=== PATIENT | male | born 1960 ===

== ENCOUNTER 2016-04-29 11:12 | Emergency (ER) | payer SELFPAY ==
[~2016-04-29] VITALS: Ht 175.3 cm; Wt 75.0 kg
[2016-04-29 11:17] VITALS: Ht 175.3 cm; Wt 75.0 kg
[2016-04-29] MEDS ORDERED: morphine 4 MG/ML VIAL IV STA (11:22)
--- NOTE | 2016-04-29 13:17 | RADRPT ---
PROCEDURE: XR Elbow. CLINICAL INDICATION: Pain TECHNIQUE: AP and lateral views of the right elbow performed. COMPARISON: None. FINDINGS: There is complete posterior dislocation of the right elbow joint involving both the radius and ulna with more prominent involvement of the ulna. There is an associated comminuted impaction type fract ure of the radius head anteriorly with displacement of the fracture fragments. In addition there is an distraction type fracture and avulsion of the olecranon process with distraction measuring 2.1 c m with comminution and small fragments are seen posteriorly. There is pronounced surrounding soft t issue swelling. IMPRESSION: There is a posterior dislocation of the right elbow of both the radius and, and there is associated distraction type fracture of the olecranon and impaction type fracture of the anterior radial head w ith comminution and adjacent fragments. A call report was made to Gallito Najera at 04/29/2016 1:16:40 PM RPTAT: AA .Andree Norwood MD, Date Time Electronically viewed and signed by .Andree Norwood MD, MD on 04/29/2016 13:16 .Carmen/
[2016-04-29] MEDS ORDERED: PROPOFOL 200 MG INJ IV ONE (14:00)
[2016-04-29] MEDS ORDERED: SOD CHLORIDE 0.9% 1,000 ML IV STA (14:00)
[2016-04-29 14:15] VITALS: TEMP 98.1
[2016-04-29] MEDS ORDERED: SIMV10TA76 PO (14:54)
[2016-04-29 15:15] VITALS: BP 119/87; PULSE 72; RESP 20
--- NOTE | 2016-04-29 15:34 | ERD ---
ER Documentation Chief Complaint Date/Time DATE: 04/29/16 TIME: 15:30 Chief Complaint RT ELBOW PAIN/INJURY AFTER TRIP AND FALL HPI This is a 55-year-old male presents to the emergency room for evaluation of elbow pain. The patient localizes pain to the right elbow and states that he did fall at his home in the backyard. He denies any head injury or loss of consciousness. He does state that his elbow is misinformed and he feels like he dislocated it. The patient denies being on any blood thinners at this time. ROS All systems reviewed and are negative except as per history of present illness. Medications Home Meds Reported Medications Simvastatin* (Zocor*) 10 Mg Tablet, 10 MG PO QHS, #30 TAB 04/29/16 Allergies Allergies: Coded Allergies: No Known Allergy (Unverified , 04/29/16) PMhx/Soc Medical and Surgical Hx: pt denies Medical Hx, pt denies Surgical Hx Hx Alcohol Use: No Hx Substance Use: No Hx Tobacco Use: No Smoking Status: Never smoker Physical Exam Vitals Vital Signs Date Time Temp Pulse Resp B/P Pulse Ox O2 Delivery O2 Flow Rate FiO2 04/29/16 14:30 60 20 104/78 100 Room Air 04/29/16 14:20 63 21 127/84 100 Non Rebreather 15.0 04/29/16 14:15 98.1 63 15 134/84 100 Non Rebreather 15.0 04/29/16 14:10 98.2 60 20 143/91 100 Non Rebreather 04/29/16 14:09 15.0 04/29/16 14:05 71 22 122/82 100 15.0 04/29/16 14:00 98.2 65 21 113/79 99 Non Rebreather 15.0 04/29/16 13:40 98.3 62 23 106/77 100 04/29/16 11:17 98.2 60 20 140/80 99 Physical Exam INITIAL VITAL SIGNS: Reviewed by me GENERAL: The patient is well developed and appropriate for usual state of health in no apparent distress HEENT: Pupils equal, round, and reactive to light. EOMI. There is no scleral icterus. NECK: C-spine is soft and supple, there is no meningismus. There is no cervical lymphadenopathy. LUNGS: Clear to auscultation bilaterally. There are no rales, wheezes or rhonchi. HEART: Regular rate and rhythm, no murmurs, clicks, rubs or gallops. ABDOMEN: Soft, non-tender, non-distended. There are bowel sounds in all four quadrants. No rebound or guarding. EXTREMITIES: Soft tissue swelling noted over the posterior aspect of the right elbow, visible deformity in the posterior location. Palpable and equal radial and ulnar pulses. NEUROLOGICAL: The patient moves all four extremities with 5/5 strength. Cranial nerves II - XII are intact. Normal gait. Alert and oriented SKIN: There is no apparent rash or petechiae. HEME/LYMPHATIC: There is no evidence of excessive bruising or lymphedema. PSYCHIATRIC: The patient does not appear anxious or depressed. Results 24 hrs Current Medications Medications (Trade) Dose Ordered Sig/Kacy Route PRN Reason Start Time Stop Time Status Last Admin Dose Admin Morphine Sulfate (morphine) 4 mg ONCE STAT IV 04/29/16 11:22 04/29/16 11:23 DC 04/29/16 11:30 Propofol 100 mg 100 mg ONCE ONCE IV 04/29/16 14:00 04/29/16 14:01 DC Sodium Chloride (NS) 1,000 ml @ 1,000 mls/hr Q1H STAT IV 04/29/16 14:00 04/29/16 14:59 DC 04/29/16 14:03 Procedures/MDM X-ray Elbow 3V Interpreted by me: There is a posterior dislocation of the right elbow of both the radius and, and there is associated distraction type fracture of the olecranon and impaction type fracture of the anterior radial head with comminution and adjacent fragments. X-ray Elbow 3V Interpreted by me: #2 postreduction Fat Pads: Slight posterior fat pad Bones: Persistent fracture of the olecranon process, and anterior radial head Joints: Reduced dislocation Foreign body: [None] This 55-year-old male presents to the ER for evaluation of right elbow pain. This patient was found to have a right-sided olecranon process fracture, and radial head fracture with posterior dislocation. He is neurovascularly intact however. I was able to reduce the dislocation segment. I have contacted her on -call orthopedic surgeon, Dr. Fletcher and I have reviewed the images with him. He states the patient can be placed in a posterior splint and can follow-up as an outpatient. The patient was placed in a splint. Please see split no. The patient is neurovascularly intact before and after splint placement. He will be referred out for orthopedic follow-up, Hao Temple for breakthrough pain. Reduction by me: Anesthesia: Propofol 100 mg Location: Right elbow Technique: Gentle traction and manipulation Results: [facility] of normal anatomic positioning Neurovascularly intact post procedure. [Splint Assessment: Neurovascularly intact post splint placement with good fit.] Procedural Sedation: Pre-assessment performed. See preceding complete history and physical for details. Time out performed. See sedation documentation for details. Medication(s): Propofol 100 mg Complications: No hypoxic or apneic events Recovered without incident. Greater than 15 minutes of face to face time included in sedation and recovery. A right posterior long arm splint was applied by the tech under my direct supervision. After splint application, the patient was appreciated to have a normal distal neurovascular examination. Departure Diagnosis: Primary Impression: Fracture dislocation of elbow joint Additional Impressions: Closed fracture dislocation of elbow Olecranon fracture Condition: Fair YOSSI HERNANDEZ DO Apr 29, 2016 15:34
[2016-04-29] MEDS ORDERED: HYDR-906 PO (15:35)
[2016-04-29] MEDS ORDERED: IBUP800T25 PO (15:35)
--- NOTE | 2016-04-29 15:54 | RADRPT ---
PROCEDURE: XR Elbow. CLINICAL INDICATION: Post reduction TECHNIQUE: Two views of the right elbow are available for review COMPARISON: Earlier study from 1142 hours FINDINGS: There has been reduction of the subluxed olecranon. There has been partial reduction of the olecran on fracture. There is still impacted radial head fracture identified. There is moderate soft tissu e swelling and hemarthrosis present. IMPRESSION: 1. Near anatomic post reduction of the olecranon fracture without significant change in impacted ra dial head fracture. 2. Associated soft tissue swelling and hemarthrosis. RPTAT: [facility] Physician Aminata Date Time Electronically viewed and signed by Harris Marie Physician on 04/29/2016 15:53 /
--- NOTE | 2016-04-29 15:57 | RADRPT ---
PROCEDURE: XR Wrist. CLINICAL INDICATION: Pain. TECHNIQUE: AP, lateral and oblique views of the right wrist were performed. COMPARISON: No prior studies are available for comparison. FINDINGS: There is no fracture. There is no dislocation. There is no lytic or blastic lesion. The articular surfaces are intact. There is no radiopaque foreign body. IMPRESSION: 1. Unremarkable right wrist x-ray series. RPTAT: [facility] Harris Marie Physician Date Time Electronically viewed and signed by Harris Marie Physician on 04/29/2016 15:56 /
== END 2016-04-29 16:08 | disposition home or self-care (01) ==
LOC: E/R 11:12
DX: S53.024A Posterior dislocation of right radial head, initial encounter (principal); S52.031A Displaced fracture of olecranon process with intraarticular extension of right ulna, initial encounter for closed fracture; R40.2142 Coma scale, eyes open, spontaneous, at arrival to emergency department; R40.2252 Coma scale, best verbal response, oriented, at arrival to emergency department; R40.2362 Coma scale, best motor response, obeys commands, at arrival to emergency department; W01.0XXA Fall on same level from slipping, tripping and stumbling without subsequent striking against object, initial encounter; Y92.009 Unspecified place in unspecified non-institutional (private) residence as the place of occurrence of the external cause
CPT/HCPCS: 24600; 73080; 73110; 96374; 99285; J2270; J7030